=== PATIENT | male | born 1945 | race Caucasian/White ===

== ENCOUNTER 2018-05-15 07:40 | Emergency (ER) | payer OTHER, MEDICARE ==
[2018-05-15] MEDS ORDERED: LIDOCAINE 2% JELLY 20 ML (UROJECT) ONE (07:58)
[2018-05-15] MEDS ORDERED: LIDOCAINE 2% JELLY 20 ML (UROJECT) UR ONE (08:00)
--- NOTE | 2018-05-15 08:04 | EDPHY ---
H & P Time Seen by Provider: 05/15/18 07:47 HPI/ROS: HPI Unable to urinate. 73-year-old male by private vehicle. This patient has a history of prostatic hypertrophy. He states that he normally takes Flomax. 0.4 mg daily. He has not taken this medication in a few days. He reports not being able to urinate since 2:00 a.m. This morning. He presents the emergency department with sensation of bladder distention and discomfort. He is from [place]. He does have a urologist there. He has no other complaint. The patient denies any new medications. No anesthesia or recent surgeries. No trauma. ROS: Constitutional: No fever, no chills. No weakness. Eyes: No discharge. No changes in vision. ENT: No sore throat. No nasal congestion or rhinorrhea. Respiratory: No cough. No shortness of breath. Cardiac: No chest pain, no palpitations. Gastrointestinal: As above, no vomiting, no diarrhea. Genitourinary: No hematuria. No dysuria or increased frequency with urination. As above. Musculoskeletal: No back pain. No neck pain. No myalgias or arthralgias. Skin: No rashes. Neurological: No headache. No focal weakness or altered sensation. Past medical history: Hypertension. As above. Social history: Nonsmoker. Here by himself. No alcohol. Physical Exam: General Appearance: Alert, he appears uncomfortable but not in distress. This patient is responding to questions appropriately and in full sentences. This patient appears well-hydrated and well-nourished. Eyes: Pupils equal and round no pallor or injection. No lid edema, erythema or injection. Respiratory: There are no retractions, lungs are clear to auscultation with good air movement bilaterally. Cardiovascular: Regular rate and rhythm. No murmur. Gastrointestinal: Abdomen is soft with suprapubic tenderness and distention on palpation, no masses, bowel sounds normal. No focal tenderness at McBurney's point. No Souza sign. Neurological: Motor sensory function is grossly intact. Cranial nerves are normal. Gait is normal. Skin: Warm and dry, no rashes. Musculoskeletal: Neck is supple and nontender. Extremities are symmetrical. All joints range without pain or impingement. Psychiatric: No agitation. No depression. Database: EKG: Imaging: Procedures: Emergency department course: Triage vital signs reviewed. He is moderately hypertensive. Vital signs are otherwise normal. Bedside ultrasound indicates at least 850 cc of urine in his bladder. Robertson catheter will be placed without issue. Patient consents to procedure. I will also check a UA and a chemistry. The patient states that his baseline creatinine is elevated. The patient will be given 0.4 mg of oral Flomax as well. Blood work and urinalysis reviewed. Creatinine is mildly elevated at 1.5 which is consistent with the patient's baseline. Urinalysis showed a small amount of blood and is otherwise unremarkable. 8:45 a.m., the patient was re-evaluated. Resting comfortably at this time. He feels much better. 850 cc out in Robertson collection container. He does feel comfortable being discharged with the Robertson catheter in place and a leg bag. He has been instructed on follow-up with his primary care physician or urologist in the next 1-2 days. Return to emergency department precautions have been reviewed with him. All of his questions were answered. The patient was discharged from the emergency department in good condition. Differential Diagnosis: The differential diagnosis on this patient includes but is not limited to acute urinary retention, prostatic hypertrophy. CVA, epidural compression syndrome, medication reaction. This represents a partial list of diagnoses considered. These considerations are based on history, physical exam, past history, reassessment and diagnostic testing. Smoking Status: Never smoked Constitutional: Initial Vital Signs Temperature (C) 36.8 C 05/15/18 07:42 Heart Rate 81 05/15/18 07:42 Respiratory Rate 18 05/15/18 07:42 Blood Pressure 177/99 H 05/15/18 07:42 O2 Sat (%) 95 05/15/18 07:42 O2 Delivery Mode Room Air Allergies/Adverse Reactions: No Known Allergies Allergy (Unverified 05/15/18 07:41) Home Medications: Medication Instructions Recorded Atorvastatin Calcium 05/15/18 Bupropion HBr 05/15/18 Effexor Xr 05/15/18 Flomax 05/15/18 [place] Carbonate 05/15/18 Losartan Potassium 05/15/18 Tamsulosin HCl [Flomax 0.4 MG (*)] 0.4 mg PO DAILY #10 cap 05/15/18 Medical Decision Making - Data Points Laboratory Results: Laboratory Results 05/15/18 08:01 05/15/18 05/15/18 08:15 08:01 Sodium 139 mEq/L mEq/L (135-145) Potassium 3.8 mEq/L mEq/L (3.3-5.0) Chloride 105 mEq/L mEq/L (97-110) Carbon Dioxide 25 mEq/l mEq/l (22-31) Anion Gap 9 mEq/L mEq/L (6-14) BUN 24 mg/dL H mg/dL (7-23) Creatinine 1.5 mg/dL H mg/dL (0.7-1.3) Estimated GFR 46 Glucose 103 mg/dL H mg/dL (70-100) Calcium 9.7 mg/dL mg/dL (8.5-10.4) Phosphorus 3.2 mg/dL mg/dL (2.5-4.5) Albumin 4.2 g/dL g/dL (3.5-5.0) Specimen Hemolysis 144 Urine Color YELLOW Urine Appearance CLEAR Urine pH 6.0 (5.0-7.5) Ur Specific [place] 1.015 (1.002-1.030) Urine Protein NEGATIVE (NEGATIVE) Urine Ketones NEGATIVE (NEGATIVE) Urine Blood 2+ H (NEGATIVE) Urine Nitrate NEGATIVE (NEGATIVE) Urine Bilirubin NEGATIVE (NEGATIVE) Urine Urobilinogen NEGATIVE EU EU (0.2-1.0) Ur Leukocyte Esterase NEGATIVE (NEGATIVE) Urine RBC 50-182 /hpf H /hpf (0-3) Urine WBC 1-3 /hpf /hpf (0-3) Ur Epithelial Cells NONE SEEN /lpf /lpf (NONE-1+) Urine Mucus TRACE /lpf /lpf (NONE-1+) Urine Glucose NEGATIVE (NEGATIVE) Medications Given: Discontinued Medications Lidocaine (Uroject Lidocaine 2% Jelly) 20 ml UR EDNOW ONE Stop: 05/15/18 08:01 Last Admin: 05/15/18 08:01 Dose: 20 ml Tamsulosin HCl (Flomax) 0.4 mg PO EDNOW ONE Stop: 05/15/18 08:08 Last Admin: 05/15/18 08:22 Dose: 0.4 mg Departure - Departure Disposition: Home, Routine, Self-Care Clinical Impression: Acute urinary retention Condition: Good Instructions: Urinary Retention in Men (ED), Robertson Catheter Placement and Care (ED) Additional Instructions: Read and follow provided instructions. Follow-up with your primary care physician or urologist in 1-2 days in the [place] for re-evaluation and removal of Robertson catheter. Take medication as prescribed. Return to the emergency department for worsening symptoms or other serious concerns. Referrals: NONE *PRIMARY CARE P,. [Unknown] - As per Instructions Prescriptions: Tamsulosin HCl [Flomax 0.4 MG (*)] 0.4 mg PO DAILY #10 cap
[2018-05-15] MEDS ORDERED: TAMSULOSIN HCL 0.4 MG CAP PO ONE (08:07)
[2018-05-15 09:09] VITALS: BP 133/58
== END 2018-05-15 09:11 | disposition home or self-care (01) ==
PROC: 0T9B70Z Drainage of Bladder with Drainage Device, Via Natural or Artificial Opening (ICD-10-PCS; principal; 2018-05-15)
DX: R33.9 Retention of urine, unspecified (principal); N40.1 Benign prostatic hyperplasia with lower urinary tract symptoms; I10 Essential (primary) hypertension; Z79.83 Long term (current) use of bisphosphonates